=== PATIENT | female | born 1970 | race Caucasian/White ===

== ENCOUNTER 2024-08-15 04:01 | Emergency (ER) | payer OTHER, SELFPAY ==
[2024-08-15] MEDS ORDERED: TDAP (DIPHTH,PERTUSS(ACELL),TET VAC) 0.5 ML VIAL IMVAC ONE (04:17)
[2024-08-15] MEDS ORDERED: HYDROCODONE/APAP 5/325 MG TAB ONE (04:17)
[2024-08-15] MEDS ORDERED: LIDOCAINE 1% MPF 5 ML VIAL ONE (04:46)
[2024-08-15] MEDS ORDERED: DERMABOND SKIN ADHESIVE TOP ONE (04:47)
[2024-08-15] MEDS ORDERED: BACI/NEOMYCIN/POLY OINT 15GM TOP ONE (05:22)
--- NOTE | 2024-08-15 06:06 | ER ---
Nurse's Notes [facility] Name: Neetu Raines Age: 54 yrs Sex: Female : 1970 Arrival Date: 08/15/2024 Time: 04:01 Bed 6 Private MD: Diagnosis: Laceration without foreign body of left index finger without damage to nail;Laceration without foreign body of left middle finger without damage to nail Presentation: 08/15 04:14 Chief complaint: Patient states: PT STATES SHE ACCIDENTALLY GOT LEFT 3RD AND 4TH FINGER br2 CAUGHT IN A BOX FAN, CAUSING LACERATION TO 3RD AND 4TH POSTERIOR FINGERS. Coronavirus screen: Client denies travel out of the [place] in the last 14 days. Ebola Screen: Patient denies exposure to infectious person. Initial Sepsis Screen: Does the patient meet any 2 criteria? No. Patient's initial sepsis screen is negative. Does the patient have a suspected source of infection? No. Patient's initial sepsis screen is negative. Risk Assessment: Do you want to hurt yourself or someone else? Patient reports no desire to harm self or others. Onset of symptoms was August 15, 2024 at 03:00. 04:14 Method Of Arrival: Ambulatory br2 04:14 Acuity: JUVENTINO 4 br2 04:14 Acuity: JUVENTINO 3 br2 Triage Assessment: 04:16 General: Appears uncomfortable, Behavior is anxious. Pain: Complains of pain in dorsal br2 aspect of middle phalanx of left middle finger and dorsal aspect of middle phalanx of left ring finger Pain currently is 10 out of 10 on a pain scale. EENT: No signs and/or symptoms were reported regarding the EENT system. Neuro: Level of Consciousness is awake, alert, obeys commands, Oriented to person, place, time, situation. Cardiovascular: Denies chest pain. Respiratory: Airway is patent Respiratory effort is even, unlabored, Respiratory pattern is regular, symmetrical. GI: No signs and/or symptoms were reported involving the gastrointestinal system. : No signs and/or symptoms were reported regarding the genitourinary system. Derm: Reports pain that is 10 out of 10 on a pain scale. Injury Description: Laceration sustained to dorsal aspect of middle phalanx of left middle finger and dorsal aspect of middle phalanx of left ring finger. 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 - Infectious Disease History:: Denies. - Social history:: Smoking status: Patient reports the use of cigarette tobacco products, smokes one-half pack cigarettes per day, Patient uses alcohol, occasionally. Patient/guardian denies using street drugs. Screenin:24 [facility] ED Fall Risk Assessment (Adult) History of falling in the last 3 months, al5 including since admission No falls in past 3 months (0 pts) Confusion or Disorientation No (0 pts) Intoxicated or Sedated No (0 pts) Impaired Gait No (0 pts) Mobility Assist Device Used No (0 pt) Altered Elimination No (0 pt) Score/Fall Risk Level 0 - 2 = Low Risk Oriented to surroundings, Maintained a safe environment, Hourly rounding (assess needs \T\ fall precautionary measures) done. Abuse screen: Denies threats or abuse. Denies injuries from another. Nutritional screening: No deficits noted. Tuberculosis screening: No symptoms or risk factors identified. Assessment: 04:24 General: Appears in no apparent distress. uncomfortable, Behavior is calm, cooperative. al5 Pain: Complains of pain in dorsal aspect of middle phalanx of left ring finger and dorsal aspect of middle phalanx of left middle finger. Neuro: Level of Consciousness is awake, alert, obeys commands, Oriented to person, place, time, situation. Cardiovascular: Capillary refill < 3 seconds Patient's skin is warm and dry. Respiratory: Airway is patent Respiratory effort is even, unlabored, Respiratory pattern is regular, symmetrical. GI: No signs and/or symptoms were reported involving the gastrointestinal system. : No signs and/or symptoms were reported regarding the genitourinary system. EENT: No signs and/or symptoms were reported regarding the EENT system. Derm: Skin lacerations to L middle finger and L ring finger. Musculoskeletal: No signs and/or symptoms reported regarding the musculoskeletal system. 05:36 Reassessment: Patient appears in no apparent distress at this time. Patient and/or al5 family updated on plan of care and expected duration. Pain level reassessed. Patient is alert, oriented x 3, equal unlabored respirations, skin warm/dry/pink. patient received 4 stitches to L middle finger sutured by Dr. Watson. provider placed dermabond to patient L ring finger. patient tolerated procedure well. patient L middle finger dressed with neosporin, nonadherent dressing, and finger wrapped in kerlix. patient provided education on wound care at home, suture care at home and when they need to be removed, along with signs and symptoms of infection to the area. patient verbalized understanding. Patient states feeling better. Vital Signs: 04:14 BP 159 / 75; Pulse 123; Resp 18; Temp 97.8(TE); Pulse Ox 100% on R/A; Weight 47.63 kg; br2 Height 5 ft. 6 in. ; Pain 10/10; 04:15 BP 142 / 84; Pulse 112; Resp 18; Pulse Ox 100% ; al5 04:30 BP 126 / 84; Pulse 97; Resp 16; Pulse Ox 100% ; al5 05:00 BP 131 / 74; Pulse 92; Resp 17; Pulse Ox 99% ; al5 05:30 BP 120 / 79; Pulse 82; Resp 18; Pulse Ox 98% ; al5 06:09 BP 123 / 76; Pulse 85; Resp 17; Pulse Ox 100% ; al5 04:14 Body Mass Index 16.95 (47.63 kg, 167.64 cm) br2 04:14 Pain Scale: Adult br2 ED Course: 04:02 Patient arrived in ED. [id number] 04:03 Willam Watson DO is Attending Physician. ms3 04:14 Yuly Castaneda, RN is Primary Nurse. al5 04:16 Triage completed. br2 04:24 Patient has correct armband on for positive identification. Bed in low position. Call al5 light in reach. Side rails up X 1. Provided Education on: plan of care. 04:24 Arm band placed on right wrist. Patient placed in the treatment room, in view of staff al5 members, on pulse oximetry. 04:24 Patient did not have IV access during this emergency room visit. al5 04:38 Hand Left 3 View XRAY In Process Unspecified. EDMS 05:17 Assist provider with laceration repair on dorsal aspect of middle phalanx of left al5 middle finger that was 2.5 cm. or less using sutures. Set up tray. Performed by Willam Watson DO Dressed with Kerlix, Neosporin, Patient tolerated well. 06:05 Leonid Garcia DO is Referral Physician. ms3 Administered Medications: 04:25 Drug: HYDROcodone-acetaminophen PO 5 mg-325 mg 1 tabs PO once Route: PO; al5 05:17 Follow up: Response: No adverse reaction; Pain is decreased al5 04:25 Drug: Boostrix Tdap IM 0.5 ml IM once; as a single dose Route: IM; Site: left deltoid; al5 04:49 Follow up: Response: (VIS) Vaccine information sheet provided today. Questions and/or al5 concerns addressed. VIS edition date: Dec 16, 2020.; No adverse reaction 05:05 Drug: Lidocaine Infiltration (1 %) 10 ml 20 ml Infiltration once; to bedside {Note: al5 given by DO .} Volume: 20 ml; Route: Infiltration; 05:34 Follow up: Response: No adverse reaction al5 05:34 Drug: Bjyppqrt-Haaoxzdczx-Niimcoqgd Topical Ointment 1 application Topical once Route: al5 Topical; Site: affected area; Medication: 04:25 Vaccine Information Statement (VIS) provided today. Questions and/or concerns al5 addressed. VIS edition date: December 16, 2020. Outcome: 06:05 Discharge ordered by . ms3 06:10 Discharged to home ambulatory, with family, al5 06:10 Condition: good 06:10 Discharge instructions given to patient, Instructed on discharge instructions, follow up and referral plans. wound care, Demonstrated understanding of instructions, follow-up care, wound care, 06:10 Patient left the ED. al5 Signatures: Dispatcher [employer] EDMS Willam Watson DO DO ms3 Nayely Gutiérrez [id number] Yuly Castaneda RN RN al5 Citlali Loza RN RN br2
--- NOTE | 2024-08-15 06:06 | EDPHYS ---
Physician Documentation [facility] Name: Neetu Raines Age: 54 yrs Sex: Female : 1970 Arrival Date: 08/15/2024 Time: 04:01 Bed 6 Private MD: ED Physician Willam Watson HPI: 08/15 04:10 This 54 yrs old Female presents to ER via Unassigned with complaints of FINGER ms3 LACERATIONS. 04:10 54-year-old female with no past medical history presents to the emergency department ms3 for finger lacerations that occurred 1 hour prior to arrival. Patient states she has a box fan that was falling over and she went to push the fan back up so would not fall and stuck her fingers into the blade as there is not a guard on the front of the fan. Patient states her pain is 10/10. Patient states the pain is better when holding her hand up in the ER. Patient is unsure of her last tetanus vaccine.. 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 - Infectious Disease History:: Denies. - Social history:: Smoking status: Patient reports the use of cigarette tobacco products, smokes one-half pack cigarettes per day, Patient uses alcohol, occasionally. Patient/guardian denies using street drugs. ROS: 04:10 Constitutional: Negative for fever, and chills. Cardiovascular: Negative for chest ms3 pain, and palpitations. Respiratory: Negative for shortness of breath, cough, wheezing, and pleuritic chest pain, Abdomen/GI: Negative for abdominal pain, nausea, vomiting, diarrhea, and constipation, 04:10 MS/extremity: Positive for Left 3rd and 4th finger pain, 04:10 Skin: Positive for laceration(s), Exam: 04:10 Constitutional: This is a well developed, well nourished patient who is awake, alert, ms3 and in no acute distress. Cardiovascular: Regular rate and rhythm with a normal S1 and S2. No gallops, murmurs, or rubs. Normal PMI, no JVD. No pulse deficits. Respiratory: Lungs have equal breath sounds bilaterally, clear to auscultation and percussion. No rales, rhonchi or wheezes noted. No increased work of breathing, no retractions or nasal flaring. Abdomen/GI: Soft, non-tender, with normal bowel sounds. No distension or tympany. No guarding or rebound. No evidence of tenderness throughout. 04:10 Skin: injury, laceration(s), the wound is approximately 1 cm(s), of the Distal left third finger, the second wound is approximately 1 cm(s), of the Distal left fourth finger, Vital Signs: 04:14 BP 159 / 75; Pulse 123; Resp 18; Temp 97.8(TE); Pulse Ox 100% on R/A; Weight 47.63 kg; br2 Height 5 ft. 6 in. ; Pain 10/10; 04:15 BP 142 / 84; Pulse 112; Resp 18; Pulse Ox 100% ; al5 04:30 BP 126 / 84; Pulse 97; Resp 16; Pulse Ox 100% ; al5 05:00 BP 131 / 74; Pulse 92; Resp 17; Pulse Ox 99% ; al5 05:30 BP 120 / 79; Pulse 82; Resp 18; Pulse Ox 98% ; al5 06:09 BP 123 / 76; Pulse 85; Resp 17; Pulse Ox 100% ; al5 04:14 Body Mass Index 16.95 (47.63 kg, 167.64 cm) br2 04:14 Pain Scale: Adult br2 Laceration: 05:05 Wound Repair of 1cm ( 0.4in ) subcutaneous laceration to dorsal aspect of middle ms3 phalanx of left middle finger. Linear shaped.. Distal neuro/vascular/tendon intact. Wound prep: Simple cleansing by nurse. Skin closed with thin layer Adhesive skin closure using simple sutures and sterile technique. Patient tolerated well. 05:05 Wound Repair of 1cm ( 0.4in ) subcutaneous laceration to dorsal aspect of middle ms3 phalanx of left middle finger. Linear shaped.. Distal neuro/vascular/tendon intact. Wound prep: Simple cleansing by nurse. Skin closed with thin layer Adhesive skin closure using simple sutures and sterile technique. Patient tolerated well. 05:05 Wound Repair of 2cm ( 0.8in ) subcutaneous laceration to dorsal aspect of middle ms3 phalanx of left ring finger. Distal neuro/vascular/tendon intact. Anesthesia: Digital block administered with 4 mls of 1% lidocaine. Wound prep: Simple cleansing by nurse. Skin closed with 4 5-0 Prolene using simple sutures and sterile technique. Dressed with Neosporin, bandaid. Patient tolerated well. MDM: 04:10 Differential diagnosis: open fracture, closed fracture, Laceration. ms3 04:13 Medical Screening Exam initiated ms3 05:08 Data reviewed: vital signs, nurses notes, radiologic studies, and as a result, I will ms3 discharge patient. I considered the following discharge prescriptions or medication management in the emergency department Medications were administered in the Emergency Department. See MAR. Independent interpretation of the following test(s) in the Emergency Department X-Ray: My interpretation is Left hand x-ray images reviewed by me do not reveal fracture. Counseling: I had a detailed discussion with the patient and/or guardian regarding the historical points, exam findings, and any diagnostic results supporting the discharge/admit diagnosis, radiology results, the need for outpatient follow up, to return to the emergency department if symptoms worsen or persist or if there are any questions or concerns that arise at home. Special discussion: I discussed with the patient/guardian in detail that at this point there is no indication for admission to the hospital. It is understood, however, that if the symptoms persist or worsen the patient needs to return immediately for re-evaluation. ED course: Patient's wounds closed and hemostatic without complication. Patient to follow-up with Dr. Garcia in 7 days for suture removal. Patient understands and agrees with plan. All questions were answered. Return precautions discussed include exudative drainage, erythema, worsening symptoms, or any other concerns.. 08/15 04:09 Order name: Hand Left 3 View XRAY 08/15 04:45 Order name: Dressing - Wound; Complete Time: 04:48 ms3 08/15 04:45 Order name: Gloves, Sterile; Complete Time: 04:48 ms3 08/15 04:45 Order name: Prolene, Sutures; Complete Time: 04:48 ms3 08/15 04:45 Order name: Setup Suture Tray; Complete Time: 04:48 ms3 08/15 05:08 Order name: Wound dressing; Complete Time: 05:17 ms3 Administered Medications: 04:25 Drug: HYDROcodone-acetaminophen PO 5 mg-325 mg 1 tabs PO once Route: PO; al5 05:17 Follow up: Response: No adverse reaction; Pain is decreased al5 04:25 Drug: Boostrix Tdap IM 0.5 ml IM once; as a single dose Route: IM; Site: left deltoid; al5 04:49 Follow up: Response: (VIS) Vaccine information sheet provided today. Questions and/or al5 concerns addressed. VIS edition date: Dec 16, 2020.; No adverse reaction 05:05 Drug: Lidocaine Infiltration (1 %) 10 ml 20 ml Infiltration once; to bedside {Note: al5 given by DO .} Volume: 20 ml; Route: Infiltration; 05:34 Follow up: Response: No adverse reaction al5 05:34 Drug: Pfqvvncq-Kzahhrfocy-Yzbschddy Topical Ointment 1 application Topical once Route: al5 Topical; Site: affected area; Disposition Summary: 08/15/24 06:05 Discharge Ordered Notes: Location: Home ms3 Condition: Stable ms3 Diagnosis - Laceration without foreign body of left index finger without damage to nail ms3 - Laceration without foreign body of left middle finger without damage to nail ms3 Followup: ms3 - With: Leonid Garcia DO - When: 7 - 10 days - Reason: Staple/Suture removal Discharge Instructions: - Discharge Summary Sheet ms3 - Laceration Care, Adult, [id number] ms3 - Tissue Adhesive Wound Care, [id number] ms3 Forms: - Medication Reconciliation Form ms3 - Antibiotic Education ms3 - Prescription Opioid Use ms3 - Patient Portal Instructions ms3 - Leadership Thank You Letter ms3 Signatures: Dispatcher [employer] Willam Cochran DO DO ms3 Yuyl Castaneda, RN RN al5 Citlali Loza RN RN br2
--- NOTE | 2024-08-15 06:15 | RAD REPORT ---
EXAM: XR Left Hand Complete, 3 or More Views CLINICAL HISTORY: The patient is 54 years old and is Female; Laceration. TECHNIQUE: Three views of the left hand. COMPARISON: No relevant prior studies available. FINDINGS: Bones/joints: Unremarkable. No acute fracture. No dislocation. Soft tissues: Laceration distal 4th digit. No radiopaque foreign object. IMPRESSION: Laceration distal 4th digit. No radiopaque foreign object. Electronically signed by: Denice Marie MD 08/15/2024 06:07 AM CDT RP Due to temporary technical issues with the PACS/MoPub reporting system, reports are being navdeep d by the in-house radiologist without review as a courtesy to ensure prompt reporting the interpreting radiologist is fully responsible for the content of the report. Transcribed Date/Time: 08/15/2024 6:15 AM
[2024-08-15 06:22] VITALS: TEMP 97.8
[2024-08-15 06:34] VITALS: BP 123/76; O2SAT 100
== END 2024-08-15 06:10 | disposition home or self-care (01) ==
LOC: ER 04:01
DX: S61.211A Laceration without foreign body of left index finger without damage to nail, initial encounter (principal); S61.213A Laceration without foreign body of left middle finger without damage to nail, initial encounter
CPT/HCPCS: 12001; 90715; 96372; 99284; J2003